=== PATIENT | female | born 1985 | race Caucasian/White ===

== ENCOUNTER 2017-01-06 14:22 | Outpatient (CLI) | payer OTHER | END 2017-01-06 14:23 | disposition home or self-care (01) | LOC: LAB.F 14:22 | PROVIDERS: ATTEND Obstetrics & Gynecology | DX: O09.291 Supervision of pregnancy with other poor reproductive or obstetric history, first trimester (principal) | CPT/HCPCS: 36415; 84702; 84703 ==

== ENCOUNTER 2017-01-10 13:19 | Outpatient (CLI) | payer OTHER | END 2017-01-10 13:20 | disposition home or self-care (01) | LOC: LAB.F 13:19 | PROVIDERS: ATTEND Obstetrics & Gynecology | DX: O02.0 Blighted ovum and nonhydatidiform mole (principal) | CPT/HCPCS: 36415; 84144; 84702 ==

== ENCOUNTER 2022-11-05 11:33 | Emergency (ER) | payer OTHER ==
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
[2022-11-05 15:15] VITALS: BP 136/88
== END 2022-11-05 15:53 | disposition home or self-care (01) ==
LOC: ED 11:33
DX: M54.2 Cervicalgia (principal); Y09 Assault by unspecified means
CPT/HCPCS: 99283; 99284